=== PATIENT | male | born 1985 | race Caucasian/White ===

== ENCOUNTER 2023-12-04 17:38 | Emergency (ER) | payer MEDICAID, OTHER ==
[~2023-12-04] VITALS: Ht 180.3 cm; Wt 86.4 kg
[~2023-12-04 17:38] MED LIST: MAGN296S89 PO
[2023-12-04 17:43] VITALS: TEMP 99.2
[2023-12-04] MEDS ORDERED: BUPR1FIL3 SL (18:24)
[2023-12-04] MEDS: buprenorphine/naloxone 8MG-2MG SUBlingual film SL ONE (18:54)
[2023-12-04 18:58] VITALS: BP 138/86; PULSE 85; RESP 18; O2SAT 98
[2023-12-05] MEDS ORDERED: BUPR1FIL3 SL (10:08)
== END 2023-12-04 19:01 | disposition home or self-care (01) ==
LOC: ER 17:38
DX: F11.20 Opioid dependence, uncomplicated (principal); Z88.8 Allergy status to other drugs, medicaments and biological substances; F15.90 Other stimulant use, unspecified, uncomplicated
CPT/HCPCS: 99283

== ENCOUNTER 2023-12-05 09:42 | Emergency (ER) | payer MEDICAID, OTHER ==
[~2023-12-05] VITALS: Ht 180.3 cm; Wt 86.4 kg
[~2023-12-05 09:42] MED LIST changes: +BUPR1FIL3 SL
[2023-12-05] MEDS ORDERED: BUPR1FIL3 SL (10:08)
[2023-12-05] MEDS: buprenorphine/naloxone 8MG-2MG SUBlingual film SL ONE (10:18)
[2023-12-05 10:40] VITALS: BP 120/77; PULSE 71; RESP 16; TEMP 98.1; O2SAT 99
== END 2023-12-05 10:41 | disposition home or self-care (01) ==
LOC: ER 09:42
DX: F11.99 Opioid use, unspecified with unspecified opioid-induced disorder (principal); F15.90 Other stimulant use, unspecified, uncomplicated; Z88.8 Allergy status to other drugs, medicaments and biological substances; Z79.899 Other long term (current) drug therapy
CPT/HCPCS: 99283

== ENCOUNTER 2023-12-06 09:33 | Emergency (ER) | payer MEDICAID, OTHER ==
[~2023-12-06] VITALS: Ht 180.3 cm; Wt 75.8 kg
[2023-12-06 09:41] VITALS: BP 131/90; PULSE 70; RESP 17; TEMP 98.3; O2SAT 96
[2023-12-06] MEDS: buprenorphine/naloxone 8MG-2MG SUBlingual film SL ONE (10:42)
== END 2023-12-06 10:52 | disposition home or self-care (01) ==
LOC: ER 09:34
DX: F11.99 Opioid use, unspecified with unspecified opioid-induced disorder (principal)
CPT/HCPCS: 99283

== ENCOUNTER 2024-01-20 11:48 | Outpatient (CLI) | payer MEDICAID | END 2024-01-20 23:59 | disposition home or self-care (01) | LOC: RAD 11:48 | PROVIDERS: ATTEND Physician Assistant | DX: R00.1 Bradycardia, unspecified (principal); F11.20 Opioid dependence, uncomplicated | CPT/HCPCS: 93005 ==

== ENCOUNTER 2024-02-11 13:17 | Outpatient (CLI) | payer MEDICAID | END 2024-02-11 23:59 | disposition home or self-care (01) | LOC: RAD 13:17 | PROVIDERS: ATTEND Physician Assistant | DX: F11.20 Opioid dependence, uncomplicated (principal) | CPT/HCPCS: 93005 ==

== ENCOUNTER 2024-03-02 13:59 | Outpatient (CLI) | payer MEDICAID | END 2024-03-02 23:59 | disposition home or self-care (01) | LOC: RAD 13:59 | PROVIDERS: ATTEND Physician Assistant | DX: R00.1 Bradycardia, unspecified (principal); F11.20 Opioid dependence, uncomplicated | CPT/HCPCS: 93005 ==

== ENCOUNTER 2024-05-06 18:10 | Emergency (ER) | payer MEDICAID ==
[~2024-05-06] VITALS: Ht 180.3 cm; Wt 84.8 kg
[2024-05-06 18:20] VITALS: BP 159/78; PULSE 85; RESP 18; TEMP 97.6; O2SAT 98
[2024-05-06] MEDS ORDERED: BUPR1FIL3 SL (19:11)
[2024-05-06] MEDS: buprenorphine/naloxone 8MG-2MG SUBlingual film SL ONE (19:39)
== END 2024-05-06 19:40 | disposition home or self-care (01) ==
LOC: ER 18:10
DX: F11.20 Opioid dependence, uncomplicated (principal); F15.90 Other stimulant use, unspecified, uncomplicated; Z88.8 Allergy status to other drugs, medicaments and biological substances; Z79.899 Other long term (current) drug therapy
CPT/HCPCS: 99283

== ENCOUNTER 2024-05-16 16:22 | Emergency (ER) | payer MEDICAID ==
[~2024-05-16] VITALS: Ht 180.3 cm; Wt 86.4 kg
[2024-05-16 16:23] VITALS: BP 165/102; PULSE 96; RESP 16; TEMP 98.6; O2SAT 99
[2024-05-16] MEDS ORDERED: buprenorphine/naloxone 8MG-2MG SUBlingual film SL STA (17:23)
[2024-05-16] MEDS ORDERED: BUPR1FIL3 SL (17:32)
[2024-05-16] MEDS: buprenorphine/naloxone 8MG-2MG SUBlingual film SL STA (17:59)
== END 2024-05-16 18:10 | disposition home or self-care (01) ==
LOC: ER 16:22
DX: F11.23 Opioid dependence with withdrawal (principal); F15.90 Other stimulant use, unspecified, uncomplicated; Z88.8 Allergy status to other drugs, medicaments and biological substances; Z79.899 Other long term (current) drug therapy
CPT/HCPCS: 99283